=== PATIENT | female | born 1995 | race Caucasian/White ===

== ENCOUNTER 2018-03-21 13:19 | Emergency (ER) | payer OTHER ==
[2018-03-21 13:35] VITALS: BP 113/74
--- NOTE | 2018-03-21 13:44 | EDPHY ---
H & P Stated Complaint: c/o pain in lateral L foot, says she rolled ankle while at work - [facility] Time Seen by Provider: 03/21/18 13:44 - Medical/Surgical History Hx Asthma: No Hx Chronic Respiratory Disease: No Hx Diabetes: No Hx Cardiac Disease: No Hx Renal Disease: No Hx Cirrhosis: No Hx Alcoholism: No Hx HIV/AIDS: No Hx Splenectomy or Spleen Trauma: No Other PMH: anxiety - Social History Smoking Status: Never smoked Constitutional: Initial Vital Signs Temperature (C) 36.8 C 03/21/18 13:33 Heart Rate 80 03/21/18 13:33 Respiratory Rate 16 03/21/18 13:33 Blood Pressure 113/74 03/21/18 13:33 O2 Sat (%) 96 03/21/18 13:33 O2 Delivery Mode Room Air Allergies/Adverse Reactions: No Known Allergies Allergy (Unverified 03/21/18 13:36) Home Medications: Medication Instructions Recorded Control 03/21/18 Zoloft 25mg (*) 03/21/18 Medical Decision Making - Diagnostics Imaging Results: Imaging Impressions Foot X-Ray 03/21/18 13:46 Impression: Nondisplaced fracture through the base of the 5th metatarsal. Imaging: I viewed and interpreted images myself ED Course/Re-evaluation: CHIEF COMPLAINT: Left foot injury HISTORY OF PRESENT ILLNESS: The patient is a 22 y/o female complaining of pain along the outside of her left foot after an inversion injury of this ankle earlier today. She denies any other injuries and has no pain in her ankle, leg, or knee. She is normally healthy. REVIEW OF SYSTEMS: A comprehensive 10 system review of systems is otherwise negative aside from elements mentioned in the history of present illness and medical decision making. PHYSICAL EXAM: HR, BP, O2 Sat, RR. Temp noted General Appearance: Alert, well hydrated, appropriate, and non-toxic appearing. Head: Atraumatic without scalp tenderness or obvious injury Eyes: Pupils equal, round, reactive to light and accommodation, EOMI, no trauma , no injection. Nose: Atraumatic, no rhinorrhea, clear. Throat:Mucus membranes moist. Neck: Supple. Respiratory: No distress. Cardiovascular: Good capillary refill all extremities. Musculoskeletal: Left foot: tenderness over base of 5th metatarsal with ecchymosis and mild swelling over the 4th and 5th metatarsals. Otherwise normal active ROM of all extremities, atraumatic. Neurological: Alert, appropriate, and interactive. Nonfocal. Skin: No rashes, good turgor, no nodules on palpation. Past medical history: Denies Past surgical history: Denies Family history: Noncontributory Social history: Lives in [place]. [employer] employee DIAGNOSTICS/PROCEDURES/CRITICAL CARE TIME: Left foot x-ray: Fracture at base of 5th metatarsal DIFFERENTIAL DIAGNOSIS: The differential diagnosis for the patient's knee injury included but was not limited to fracture, ligamentous injury, contusion, muscular strain. MEDICAL DECISION MAKING: This is a healthy 22 y/o female who presents with an isolated inversion injury to her left foot. She has tenderness and ecchymosis over her 5th metatarsal, which is suspicious for fracture. No instability in joint, tenting of the skin, or evidence of compartment syndrome. Plan for left foot x-ray. Foot x-ray shows nondisplaced fracture through the base of the 5th metatarsal. Patient will be placed in Garcia boot with crutches and standard fracture care and follow up instructions. She's been referred to orthopedist for follow up. Return precautions discussed. She is comfortable with this plan. Departure - Departure Disposition: Home, Routine, Self-Care Clinical Impression: Fracture of 5th metatarsal Qualifiers: Encounter type: initial encounter Fracture type: closed Fracture alignment: nondisplaced Laterality: left Qualified Code(s): S92.355A - Nondisplaced fracture of fifth metatarsal bone, left foot, initial encounter for closed fracture Condition: Good Instructions: Foot Fracture in Adults (ED) Additional Instructions: 1. Wear boot as splint. Use crutches. Okay to weight bear as tolerated. 2. Rest, ice, elevation, and ibuprofen as directed over the next few days. 3. Follow up with orthopedist next week. I recommend calling today to schedule this appointment. 4. Follow up with workman's comp as directed by your employer. 5. Return to the ED for any worsening of condition. Adult Pain & Fever Control: We recommend Acetaminophen (Tylenol) and Ibuprofen (Motrin,Advil) for pain and fever control. When fever is high or pain severe, both drugs can be used at the same time, but at different intervals. Please note the time differences. Your dose is: Acetaminophen 650mg every 4 to 6 hours Ibuprofen 600mg every 8 hours with food Note: do not take Acetaminophen with Hydrocodone (Vicodin, Lortab) or Oxycodone (Percocet). These medications also contain Acetaminophen. No more than 3000mg of Acetaminophen should be taken in 24 hours (for an adult). Referrals: Rasta Tabor MD [Medical Doctor] - As per Instructions Report Scribed for: Won Tirado Report Scribed by: Edyta Carreno Date of Report: 03/21/18 Time of Report: 13:59
== END 2018-03-21 14:27 | disposition home or self-care (01) ==
DX: S92.355A Nondisplaced fracture of fifth metatarsal bone, left foot, initial encounter for closed fracture (principal); X50.0XXA Overexertion from strenuous movement or load, initial encounter; Y92.239 Unspecified place in hospital as the place of occurrence of the external cause; Y99.0 Civilian activity done for income or pay
CPT/HCPCS: L4386

== ENCOUNTER 2018-03-25 14:16 | Emergency (ER) | payer OTHER ==
[2018-03-25 14:26] VITALS: BP 120/73
--- NOTE | 2018-03-25 14:38 | EDPHY ---
H & P Time Seen by Provider: 03/25/18 14:24 HPI/ROS: Chief complaint. Cool foot HPI. Patient is 22-year-old female was seen in our emergency department on March 21 after rolling her ankle. She was at work when she did this. X- ray showed nondisplaced fracture through the base of the 5th metatarsal. She was placed in a Douglas boot and crutches. On follow-up today at [facility] there was concern about cool foot and difficulty finding pulses. Patient has no repeat injury to the foot. She has no calf pain swelling or medial thigh pain. No chest pain or shortness of breath. Referred here because of concern for cool foot and difficulty finding pulses. Patient has no increased pain. She does have bruising to the bottom of her foot which is been present since her fracture ROS 10 systems were reviewed and negative with the exception of the elements mentioned in the history of present illness Past Medical/Surgical History: Healthy but otherwise recent foot fracture Social History: Single, nonsmoker, no alcohol Smoking Status: Never smoked Physical Exam: General Appearance: Alert pleasant well-developed female mild distress vitals are stable Eyes: Pupils equal and round no pallor or injection. ENT, Mouth: Mucous membranes are moist. Respiratory: There are no retractions, lungs are clear to auscultation. Cardiovascular: Regular rate and rhythm. Gastrointestinal: Abdomen is soft and nontender, no masses, bowel sounds normal. Neurological: Awake and alert, sensory and motor exams grossly normal. Skin: Warm and dry, no rashes. Musculoskeletal: Neck is supple nontender. Extremities bruising along the lateral and inferior aspect of the left foot. Capillary refill about 3-4 seconds and about 2-3 seconds on the right. Dorsalis pedis pulses are difficult to palpate on both feet Psychiatric: Patient is oriented X 3, there is no agitation. Constitutional: Initial Vital Signs Temperature (C) 37.1 C 03/25/18 14:23 Heart Rate 91 03/25/18 14:23 Respiratory Rate 16 03/25/18 14:23 Blood Pressure 120/73 03/25/18 14:23 O2 Sat (%) 95 03/25/18 14:23 O2 Delivery Mode Room Air Allergies/Adverse Reactions: No Known Allergies Allergy (Unverified 03/21/18 13:36) Home Medications: Medication Instructions Recorded Control 03/21/18 Zoloft 25mg (*) 03/21/18 Diflucan 03/25/18 Medical Decision Making Procedures: I am unable to obtain pulses in either foot by palpation or Doppler of the dorsalis pedis artery. Feet are wrapped in warm blankets ED Course/Re-evaluation: After wrapping both feet in warm blankets and leaving them for about 10 min I use the Doppler and have good dorsalis pedis pulses in both feet. Actually left is better than the right. Now capillary refill to toes on both feet is 2 sec or less Patient and I discussed treatment plan including criteria for return importance of follow-up and further evaluation. She expresses understanding and agreement Differential Diagnosis: Concern for arterial blockage after foot fracture. However the patient has good pulses and now good capillary refill. Departure - Departure Disposition: Home, Routine, Self-Care Clinical Impression: Metatarsal fracture Qualifiers: Encounter type: sequela Metatarsal bone: fifth Fracture type: closed Fracture alignment: nondisplaced Laterality: left Qualified Code(s): S92.355S - Nondisplaced fracture of fifth metatarsal bone, left foot, sequela Condition: Fair Instructions: Foot Fracture in Adults (ED) Additional Instructions: Continue crutches and Garcia boot. Return for worsening symptoms. Continue follow-up for fracture care with workman's comp Referrals: NONE *PRIMARY CARE P,. [Primary Care Provider] - As per Instructions Jessica Abbasi MD [Medical Doctor] - As per Instructions
== END 2018-03-25 15:10 | disposition home or self-care (01) ==
LOC: CED 14:16
DX: R09.89 Other specified symptoms and signs involving the circulatory and respiratory systems (principal); S92.355S Nondisplaced fracture of fifth metatarsal bone, left foot, sequela

== ENCOUNTER → 2018-10-30 | Outpatient (CLI) | payer OTHER | LOC: FIMAGING 12:17 → FLAB 12:17 → EDSTATUS 12:18 | PROVIDERS: ATTEND Family Medicine | DX: M54.2 Cervicalgia (principal) ==